=== PATIENT | male | born 1940 | race African-American/Black ===

== ENCOUNTER 2019-05-25 08:49 | Inpatient (IN) | payer MEDICARE, MEDICAID ==
[~2019-05-25] VITALS: Ht 162.6 cm; Wt 90.8 kg
[2019-05-25] MEDS: IPRATROPIUM/ALBUTEROL 0.5-3(2.5)MG/3ML NEB NEB SCH (02:25)
[~2019-05-25 08:49] MED LIST: ATOR20TA65; FLUT1DIS5; HYDR-4009; INSU3INS6; LOSA50TA41; P20; PROAIR; TEMA15CA
[2019-05-25] MEDS ORDERED: IPRATROPIUM BROMIDE (0.02%) 0.5MG/2.5ML NEB HHN STA (09:34)
[2019-05-25] MEDS ORDERED: ALBUTEROL (0.083%) 2.5MG/3ML NEB HHN STA (09:34)
[2019-05-25] MEDS ORDERED: METHYLPREDNISOLONE SOD SUCC 125 MG/2 ML VIAL IV STA (09:34)
[2019-05-25 10:01] LABS: BASOPHILS % 1.4 % (0.0-2.0); EOSINOPHILS % 5.2 % (0.0-5.0); HEMOGLOBIN. 14.1 g/dL (14.0-18.0); LYMPHOCYTES % 23.7 % (20.0-50.0); MEAN CORPUSCULAR HEMOGLOBIN 30.6 pg (28.0-32.0); MEAN CORPUSCULAR VOLUME 93.3 fL (80.0-94.0); MEAN PLATELET VOLUME 9.8 fl (7.4-10.4); MONOCYTES % 7.8 % (2.0-8.0); NEUTROPHILS % 61.9 % (40.0-76.0); PLATELET 192 x1000/uL (130-400); RED BLOOD CELL COUNT 4.61 mill/uL (4.7-6.1); RED CELL DISTRIBUTION WIDTH 14.5 % (11.6-14.6)
[2019-05-25 10:10] LABS: CHLORIDE 109 mEq/L (98-107)
[2019-05-25] MEDS: NITROGLYCERIN 0.4MG TABLET SL SL PRN ×2 (10:49→11:49)
[2019-05-25] MEDS ORDERED: MORPHINE SULFATE 4 MG/ML CPJ (NOT FOR IM USE) IV STA (11:28)
[2019-05-25] MEDS ORDERED: ONDANSETRON HCL 4MG/2ML INJ IV STA (11:28)
[2019-05-25] MEDS ORDERED: MORPHINE SULFATE 4 MG/ML CPJ (NOT FOR IM USE) IV ONE (13:00)
[2019-05-25] MEDS ORDERED: DIPHENHYDRAMINE 50MG/ML VIAL IV PRN (13:30)
[2019-05-25] MEDS ORDERED: CLONIDINE 0.1MG TABLET PO PRN (13:30)
[2019-05-25] MEDS ORDERED: GUAIFENESIN 200MG/10ML SUGAR FREE UDC PO PRN (13:30)
[2019-05-25] MEDS ORDERED: IPRATROPIUM/ALBUTEROL 0.5-3(2.5)MG/3ML NEB NEB PRN (13:30)
[2019-05-25] MEDS ORDERED: ONDANSETRON HCL 4MG/2ML INJ IV PRN (13:30)
[2019-05-25] MEDS ORDERED: ACETAMINOPHEN 650MG SUPP PR PRN (13:30)
[2019-05-25] MEDS ORDERED: LORAZEPAM 0.5MG TABLET PO PRN (13:30)
[2019-05-25] MEDS ORDERED: MAGNESIUM/ALUMINUM HYDROXIDE/SIMETHICONE 30ML UDC PO PRN (13:30)
[2019-05-25] MEDS ORDERED: NA PHOS,M-B/NA PHOS,DI-BA ENEMA 118ML PR PRN (13:30)
[2019-05-25] MEDS ORDERED: DOCUSATE SODIUM 100MG CAPSULE PO PRN (13:30)
[2019-05-25] MEDS ORDERED: ACETAMINOPHEN 325MG TABLET PO PRN (13:30)
[2019-05-25 14:31] VITALS: BP 143/78
[2019-05-25 17:23] LABS: CREATINE KINASE 182 IU/L (39-308)
[2019-05-25 17:24] LABS: CREATINE KINASE MB FRACTION 2.2 ng/mL (0.5-3.6)
[2019-05-25] MEDS: ENOXAPARIN 30MG/0.3ML SYR SUBCUT SCH (17:39)
[2019-05-25] MEDS: METHYLPREDNISOLONE SOD SUCC 40 MG/ML VIAL IV SCH (17:39)
[2019-05-25] MEDS: HYDROCODONE/ACETAMINOPHEN 5/325MG TABLET PO PRN (17:55)
[2019-05-25] MEDS: MORPHINE SULFATE 4 MG/ML CPJ (NOT FOR IM USE) IV PRN (19:04)
[2019-05-25 20:00] VITALS: BP 170/91
[2019-05-26] VITALS: BP 140/79
[2019-05-26 00:33] LABS: CREATINE KINASE 212 IU/L (39-308)
[2019-05-26 00:34] LABS: CREATINE KINASE MB FRACTION 1.9 ng/mL (0.5-3.6)
[2019-05-26] MEDS: METHYLPREDNISOLONE SOD SUCC 40 MG/ML VIAL IV SCH ×3 (01:30→18:13)
[2019-05-26 06:52] LABS: CLARITY URINE CLEAR (CLEAR); COLOR URINE YELLOW (YELLOW); KETONES URINE NEGATIVE (NEGATIVE); LEUKOCYTE ESTERASE URINE TRACE (NEGATIVE); NITRITE URINE NEGATIVE (NEGATIVE); OCCULT BLOOD URINE 1+ (NEGATIVE); PH URINE 7.5 (4.5-8.0); PROTEIN URINE 3+ (NEGATIVE); SPECIFIC GRAVITY URINE 1.024 (1.005-1.030)
[2019-05-26 07:19] LABS: *AMPHETAMINES SCREEN URINE NEGATIVE (NEGATIVE); *BARBITURATES SCREEN URINE NEGATIVE (NEGATIVE)
[2019-05-26 07:20] LABS: *BENZODIAZEPINES SCREEN URINE NEGATIVE (NEGATIVE); *COCAINE SCREEN URINE NEGATIVE (NEGATIVE); CANNABINOID URINE SCREEN NEGATIVE (NEGATIVE); METHADONE URINE SCREEN NEGATIVE (NEGATIVE); OPIATES URINE SCREEN PRESUMTIVE POSITIVE (NEGATIVE); PHENCYCLIDINE URINE SCREEN NEGATIVE (NEGATIVE)
[2019-05-26] MEDS: IPRATROPIUM/ALBUTEROL 0.5-3(2.5)MG/3ML NEB NEB SCH ×3 (07:41→21:28)
[2019-05-26 08:00] VITALS: BP 164/77
[2019-05-26 08:26] LABS: BASOPHILS % 0.2 % (0.0-2.0); HEMATOCRIT. 39.4 % (42.0-52.0); HEMOGLOBIN. 12.8 g/dL (14.0-18.0); LYMPHOCYTES % 8.9 % (20.0-50.0); MEAN CORPUSCULAR HEMOGLOBIN 30.5 pg (28.0-32.0); MEAN CORPUSCULAR VOLUME 93.6 fL (80.0-94.0); MEAN PLATELET VOLUME 9.7 fl (7.4-10.4); MONOCYTES % 1.5 % (2.0-8.0); NEUTROPHILS % 89.4 % (40.0-76.0); PLATELET 179 x1000/uL (130-400); RED BLOOD CELL COUNT 4.21 mill/uL (4.7-6.1); RED CELL DISTRIBUTION WIDTH 14.4 % (11.6-14.6)
[2019-05-26 08:29] LABS: CHLORIDE 108 mEq/L (98-107)
[2019-05-26 08:53] LABS: LDL CHOLESTEROL 144 mg/dL (5-100)
[2019-05-26 08:54] LABS: HDL CHOLESTEROL 57 mg/dL (40-59); T4 FREE 0.86 ng/dL (0.76-1.46)
[2019-05-26] MEDS: ENOXAPARIN 30MG/0.3ML SYR SUBCUT SCH ×2 (09:05→18:13)
[2019-05-26] MEDS ORDERED: DIAZEPAM 5 MG TABLET PO NR (10:45)
[2019-05-26 12:00] VITALS: BP 147/73
[2019-05-26] MEDS: HYDROCODONE/ACETAMINOPHEN 5/325MG TABLET PO PRN (13:58)
[2019-05-26 20:23] VITALS: BP 151/73
[2019-05-26] MEDS ORDERED: ATORVASTATIN CALCIUM 40MG TABLET PO SCH ×2 (21:00)
[2019-05-26] MEDS: MORPHINE SULFATE 4 MG/ML CPJ (NOT FOR IM USE) IV PRN (23:02)
[2019-05-27 00:23] VITALS: BP 118/79
[2019-05-27] MEDS: IPRATROPIUM/ALBUTEROL 0.5-3(2.5)MG/3ML NEB NEB SCH ×3 (01:53→11:35)
[2019-05-27 04:00] VITALS: BP 98/68
[2019-05-27] MEDS: METHYLPREDNISOLONE SOD SUCC 40 MG/ML VIAL IV SCH ×2 (06:20→16:57)
[2019-05-27 06:21] LABS: HEMOGLOBIN. 12.5 g/dL (14.0-18.0); MEAN CORPUSCULAR HEMOGLOBIN 30.1 pg (28.0-32.0); MEAN CORPUSCULAR VOLUME 93.7 fL (80.0-94.0); MEAN PLATELET VOLUME 10.2 fl (7.4-10.4); PLATELET 192 x1000/uL (130-400); RED BLOOD CELL COUNT 4.17 mill/uL (4.7-6.1); RED CELL DISTRIBUTION WIDTH 14.5 % (11.6-14.6)
[2019-05-27 06:26] LABS: PROTHROMBIN TIME 10.1 sec (9.6-11.0)
[2019-05-27 08:00] VITALS: BP 144/87
[2019-05-27] MEDS: ENOXAPARIN 30MG/0.3ML SYR SUBCUT SCH ×2 (10:21→16:57)
[2019-05-27 12:00] VITALS: BP 156/81
[2019-05-27 13:59] LABS: PLATELET ESTIMATE NORMAL
[2019-05-27] MEDS: MORPHINE SULFATE 4 MG/ML CPJ (NOT FOR IM USE) IV PRN (16:58)
[2019-05-27 17:53] VITALS: BP 159/77
== END 2019-05-27 19:22 | disposition home or self-care (01) | DRG 291 ==
LOC: ER 08:49 → 6WST 10:44 → EDBEDREQ 10:50 → ENRESERV 13:33
PROVIDERS: ADMIT Internal Medicine; ATTEND Internal Medicine
DX: I13.0 Hypertensive heart and chronic kidney disease with heart failure and stage 1 through stage 4 chronic kidney disease, or unspecified chronic kidney disease (principal); I50.33 Acute on chronic diastolic (congestive) heart failure; J44.1 Chronic obstructive pulmonary disease with (acute) exacerbation; J45.901 Unspecified asthma with (acute) exacerbation; N17.9 Acute kidney failure, unspecified; G62.9 Polyneuropathy, unspecified; D18.09 Hemangioma of other sites; E11.22 Type 2 diabetes mellitus with diabetic chronic kidney disease; E78.5 Hyperlipidemia, unspecified; I16.0 Hypertensive urgency; M47.896 Other spondylosis, lumbar region; M48.02 Spinal stenosis, cervical region; M48.061 Spinal stenosis, lumbar region without neurogenic claudication; N18.9 Chronic kidney disease, unspecified; G89.29 Other chronic pain; R26.81 Unsteadiness on feet; Z88.6 Allergy status to analgesic agent; Z79.1 Long term (current) use of non-steroidal anti-inflammatories (NSAID); Z79.899 Other long term (current) drug therapy; Z99.81 Dependence on supplemental oxygen
CPT/HCPCS: 36415; 71045; 72141; 72148; 76700; 78582; 80048; 80061; 80305; 81003; 82550; 82553; 83880; 84439; 84443; 84484; 93005; 93306; 93970; 94640; 96374; 97162; 99285; A9558; J1650; J2270; J2405; J2920; J2930; J7611; J7620

== ENCOUNTER 2020-11-12 13:18 | Inpatient (IN) | payer MEDICARE, MEDICAID ==
[~2020-11-12] VITALS: Ht 162.6 cm; Wt 85.7 kg
[~2020-11-12 13:18] MED LIST changes: -LOSA50TA41; -P20; -PROAIR; -TEMA15CA
[2020-11-12] MEDS ORDERED: METHYLPREDNISOLONE SOD SUCC 125 MG/2 ML VIAL IV STA (13:59)
[2020-11-12] MEDS ORDERED: AZITHROMYCIN 500 MG in DEXT 5% WATER 250 ML IV STA (13:59)
[2020-11-12] MEDS ORDERED: ALBUTEROL (0.083%) 2.5MG/3ML NEB HHN STA (13:59)
[2020-11-12 14:17] LABS: EOSINOPHILS % 1.4 % (0.0-5.0); HEMATOCRIT. 28.8 % (42.0-52.0); HEMOGLOBIN. 9.3 g/dL (14.0-18.0); MEAN CORPUSCULAR HEMOGLOBIN 32.3 pg (28.0-32.0); MEAN CORPUSCULAR VOLUME 100.2 fL (80.0-94.0); MEAN PLATELET VOLUME 9.7 fl (7.4-10.4); MONOCYTES % 11.5 % (2.0-8.0); NEUTROPHILS % 68.1 % (40.0-76.0); PLATELET 142 x1000/uL (130-400); RED BLOOD CELL COUNT 2.87 mill/uL (4.7-6.1); RED CELL DISTRIBUTION WIDTH 16.6 % (11.6-14.6)
[2020-11-12 14:33] LABS: CHLORIDE 107 mEq/L (98-107)
[2020-11-12] MEDS ORDERED: FUROSEMIDE 20MG/2ML VIAL IVP ONE (16:30)
[2020-11-12 22:30] VITALS: BP 124/70
[2020-11-13] VITALS: BP 142/78
[2020-11-13] MEDS ORDERED: IPRATROPIUM/ALBUTEROL 0.5-3(2.5)MG/3ML NEB HHN PRN (00:15)
[2020-11-13] MEDS ORDERED: LEVOFLOXACIN 500MG PREMIX 100 ML IV SCH (00:15)
[2020-11-13] MEDS ORDERED: SODIUM CHLORIDE 0.45% 1,000 ML IV SCH (00:15)
[2020-11-13] MEDS: MORPHINE SULFATE 2 MG/ML CPJ (NOT FOR IM USE) IV SCH ×2 (00:42→03:56)
[2020-11-13] MEDS: LEVOFLOXACIN 250MG PREMIX 50 ML IV SCH (01:58)
[2020-11-13] MEDS: IPRATROPIUM/ALBUTEROL 0.5-3(2.5)MG/3ML NEB HHN SCH ×3 (02:37→21:49)
[2020-11-13 04:00] VITALS: BP 151/71
[2020-11-13 06:54] LABS: HEMATOCRIT. 24.8 % (42.0-52.0); HEMOGLOBIN. 7.9 g/dL (14.0-18.0); MEAN CORPUSCULAR HEMOGLOBIN 31.9 pg (28.0-32.0); MEAN CORPUSCULAR VOLUME 100.2 fL (80.0-94.0); MEAN PLATELET VOLUME 9.5 fl (7.4-10.4); PLATELET 124 x1000/uL (130-400); RED BLOOD CELL COUNT 2.48 mill/uL (4.7-6.1); RED CELL DISTRIBUTION WIDTH 16.7 % (11.6-14.6)
[2020-11-13] MEDS ORDERED: INSULIN LISPRO 100 UNITS/ML SUBCUT SCH (07:00)
[2020-11-13] MEDS ORDERED: DEXTROSE 50% WATER 50ML SYRINGE IV PRN (07:00)
[2020-11-13] MEDS: BLOOD SUGAR DIAGNOSTIC STRIP TEST SCH ×4 (07:05→21:00)
[2020-11-13] MEDS: INSULIN LISPRO 100 UNITS/ML SUBCUT SCH ×4 (07:05→21:05)
[2020-11-13 08:00] VITALS: BP 120/65
[2020-11-13] MEDS ORDERED: ENOXAPARIN 30MG/0.3ML SYR SUBCUT SCH (09:00)
[2020-11-13] MEDS: AMLODIPINE 10MG TABLET PO SCH (10:19)
[2020-11-13] MEDS: MORPHINE SULFATE 2 MG/ML CPJ (NOT FOR IM USE) IV PRN ×2 (10:19→21:03)
[2020-11-13 12:00] VITALS: BP 111/57
[2020-11-13] MEDS ORDERED: SODIUM POLYSTYRENE SULFONATE 15 G/60 ML BOT PO SCH (12:00)
[2020-11-13] MEDS ORDERED: HYDRALAZINE 20MG/ML VIAL IV PRN (15:00)
[2020-11-13] MEDS ORDERED: HYDROCODONE/ACETAMINOPHEN 5/325MG TABLET PO PRN (15:00)
[2020-11-13] MEDS ORDERED: ALBUTEROL 6.7GM HFA INHALER ORI SCH (15:00)
[2020-11-13] MEDS: PANTOPRAZOLE SODIUM 40 MG/VIAL IV SCH (15:19)
[2020-11-13] MEDS: METHYLPREDNISOLONE SOD SUCC 40 MG/ML VIAL IV SCH ×2 (15:20→21:02)
[2020-11-13 16:00] VITALS: BP_SYST 120; BP_SYST 123; BP_DIAS 63; BP_DIAS 64
[2020-11-13] MEDS ORDERED: INSULIN GLARGINE UD 100 UNITS/ML SYR SUBCUT NR (16:30)
[2020-11-13 18:26] LABS: BG BASE EXCESS -1.6 mmol/L (-2.0-2.0); BG CARBOXYHEMOGLOBIN 0.1 % (0.5-1.5); BG DEOXYHEMOGLOBIN 12.9 % (0.0-5.0); BG FRACTION INSPIRED OXYGEN 21; BG HCO3 ACT 22.6 mmol/L (22.0-26.0); BG METHEMOGLOBIN 0.2 % (0.0-1.5); BG OXYGEN SATURATION 87.1 % (92.0-98.5); BG OXYHEMOGLOBIN 86.8 % (94.0-97.0); BG PCO2 35.5 mmHg (35.0-45.0); BG PH 7.421 (7.350-7.450); BG PO2 51.7 mmHg (75.0-100.0); BG SAMPLE SITE LEFT BRACHIAL; BG TOTAL HEMOGLOBIN 9.1 g/dL (12.0-18.0); BG VENT MODE ROOM AIR
[2020-11-13 18:34] LABS: CREATINE KINASE MB FRACTION 1.4 ng/mL (0.5-3.6)
[2020-11-13 18:38] LABS: INR 1.1; PROTHROMBIN TIME 11.9 sec (9.6-11.0)
[2020-11-13 18:50] LABS: HEPATITIS B SURFACE ANTIGEN NEGATIVE
[2020-11-13 19:20] LABS: HEPATITIS A AB IGM NEGATIVE (NEGATIVE)
[2020-11-13 20:00] VITALS: BP 130/80
[2020-11-13 20:31] LABS: NUCLEATED RED BLOOD CELLS 1 /100 WBC; PLATELET ESTIMATE NORMAL
[2020-11-13] MEDS ORDERED: LACTULOSE 20G/30ML UDC PO PRN (21:00)
[2020-11-13] MEDS: INSULIN GLARGINE UD 100 UNITS/ML SYR SUBCUT SCH (21:04)
[2020-11-14] VITALS (7 sets, daily range): BP systolic 112–146; BP diastolic 62–80
[2020-11-14] MEDS: MORPHINE SULFATE 2 MG/ML CPJ (NOT FOR IM USE) IV PRN ×3 (01:06→21:32)
[2020-11-14] MEDS: LEVOFLOXACIN 250MG PREMIX 50 ML IV SCH (01:06)
[2020-11-14] MEDS: IPRATROPIUM/ALBUTEROL 0.5-3(2.5)MG/3ML NEB HHN SCH ×4 (01:07→21:28)
[2020-11-14] MEDS: SODIUM CHLORIDE 0.45% 1,000 ML IV SCH ×2 (01:07→14:47)
[2020-11-14] MEDS: METHYLPREDNISOLONE SOD SUCC 40 MG/ML VIAL IV SCH ×3 (06:11→21:26)
[2020-11-14] MEDS: BLOOD SUGAR DIAGNOSTIC STRIP TEST SCH ×3 (06:12→18:03)
[2020-11-14] MEDS: INSULIN LISPRO 100 UNITS/ML SUBCUT SCH ×4 (06:12→21:26)
[2020-11-14 07:53] LABS: HEMOGLOBIN. 7.6 g/dL (14.0-18.0); MEAN CORPUSCULAR HEMOGLOBIN 32.2 pg (28.0-32.0); MEAN CORPUSCULAR VOLUME 101.6 fL (80.0-94.0); MEAN PLATELET VOLUME 9.7 fl (7.4-10.4); PLATELET 124 x1000/uL (130-400); RED BLOOD CELL COUNT 2.37 mill/uL (4.7-6.1); RED CELL DISTRIBUTION WIDTH 16.9 % (11.6-14.6)
[2020-11-14 08:07] LABS: T4 FREE 0.93 ng/dL (0.76-1.46)
[2020-11-14 08:53] LABS: FOLIC ACID (FOLATE) SERUM 7.7 ng/mL (>5.38)
[2020-11-14 09:03] LABS: VITAMIN B12 SERUM 1877 pg/mL (211-911)
[2020-11-14] MEDS: PANTOPRAZOLE SODIUM 40 MG/VIAL IV SCH (10:17)
[2020-11-14] MEDS: AMLODIPINE 10MG TABLET PO SCH (10:17)
[2020-11-14] MEDS: INSULIN GLARGINE UD 100 UNITS/ML SYR SUBCUT SCH (10:35)
[2020-11-14] MEDS ORDERED: INSULIN GLARGINE UD 100 UNITS/ML SYR SUBCUT NR (13:00)
[2020-11-14 19:17] LABS: PLATELET ESTIMATE SLIGHTLY DECREASED
[2020-11-14] MEDS ORDERED: INSULIN GLARGINE UD 100 UNITS/ML SYR SUBCUT SCH (22:00)
[2020-11-14] MEDS ORDERED: HALOPERIDOL LACTATE 5MG/ML VIAL IM SCH (23:30)
== END 2020-11-14 23:55 | disposition left against medical advice (07) | DRG 291 ==
LOC: ER 13:33 → 8WST 14:16 → EDBEDREQTM 14:18 → EDBEDREQ 14:18 → ENRESERV 20:55
PROVIDERS: ADMIT Internal Medicine; ATTEND Internal Medicine
DX: I13.0 Hypertensive heart and chronic kidney disease with heart failure and stage 1 through stage 4 chronic kidney disease, or unspecified chronic kidney disease (principal); I50.43 Acute on chronic combined systolic (congestive) and diastolic (congestive) heart failure; N17.9 Acute kidney failure, unspecified; J44.1 Chronic obstructive pulmonary disease with (acute) exacerbation; J45.901 Unspecified asthma with (acute) exacerbation; E46 Unspecified protein-calorie malnutrition; F11.20 Opioid dependence, uncomplicated; E87.70 Fluid overload, unspecified; D69.6 Thrombocytopenia, unspecified; E11.22 Type 2 diabetes mellitus with diabetic chronic kidney disease; E11.40 Type 2 diabetes mellitus with diabetic neuropathy, unspecified; E11.65 Type 2 diabetes mellitus with hyperglycemia; E66.9 Obesity, unspecified; E78.5 Hyperlipidemia, unspecified; E87.5 Hyperkalemia; K76.0 Fatty (change of) liver, not elsewhere classified; K40.20 Bilateral inguinal hernia, without obstruction or gangrene, not specified as recurrent; N18.30 Chronic kidney disease, stage 3 unspecified; K44.9 Diaphragmatic hernia without obstruction or gangrene; Z60.2 Problems related to living alone; G89.29 Other chronic pain; M54.9 Dorsalgia, unspecified; N49.2 Inflammatory disorders of scrotum; D53.9 Nutritional anemia, unspecified; M19.90 Unspecified osteoarthritis, unspecified site; Z53.29 Procedure and treatment not carried out because of patient's decision for other reasons; Z99.81 Dependence on supplemental oxygen; Z68.32 Body mass index [BMI] 32.0-32.9, adult; Z79.899 Other long term (current) drug therapy; Z88.8 Allergy status to other drugs, medicaments and biological substances; Z87.891 Personal history of nicotine dependence
CPT/HCPCS: 36415; 36600; 71045; 74176; 76700; 80048; 80053; 80076; 82140; 82248; 82375; 82550; 82553; 82607; 82728; 82746; 82805; 82962; 83036; 83540; 83550; 83880; 84132; 84153; 84439; 84443; 84481; 84484; 85025; 85044; 86705; 86709; 86803; 86850; 86900; 86920; 87340; 93005; 93306; 93970; 94640; 99285; A6261; C1893; C9113; J0456; J1815; J1940; J1956; J2270; J2920; J2930; J7060; G0103

== ENCOUNTER 2020-11-19 17:21 | Inpatient (IN) | payer MEDICARE, MEDICAID ==
[~2020-11-19] VITALS: Ht 162.6 cm; Wt 97.1 kg
[~2020-11-19 17:21] MED LIST changes: -ATOR20TA65; -FLUT1DIS5
[2020-11-19 18:42] LABS: HEMATOCRIT. 26.8 % (42.0-52.0); HEMOGLOBIN. 8.8 g/dL (14.0-18.0); MEAN CORPUSCULAR HEMOGLOBIN 34.2 pg (28.0-32.0); MEAN CORPUSCULAR VOLUME 103.8 fL (80.0-94.0); MEAN PLATELET VOLUME 8.8 fl (7.4-10.4); PLATELET 118 x1000/uL (130-400); RED BLOOD CELL COUNT 2.58 mill/uL (4.7-6.1); RED CELL DISTRIBUTION WIDTH 17.8 % (11.6-14.6)
[2020-11-19 18:54] LABS: CHLORIDE 106 mEq/L (98-107)
[2020-11-19] MEDS ORDERED: FUROSEMIDE 40MG/4ML VIAL IVP ONE (19:30)
[2020-11-19] MEDS ORDERED: HEPARIN 5000 UNITS/ML VIAL IV SCH (21:45)
[2020-11-19] MEDS ORDERED: HEPARIN 5000 UNITS/ML VIAL IV PRN ×2 (21:45)
[2020-11-19] MEDS ORDERED: HEPARIN 25,000 UNITS PREMIX 250 ML IV PRN (21:45)
[2020-11-19 22:21] LABS: NUCLEATED RED BLOOD CELLS 6 /100 WBC; PLATELET ESTIMATE DECREASED
[2020-11-19] MEDS ORDERED: DEXT 10% WATER 1,000 ML IV ONE (22:30)
[2020-11-19] MEDS ORDERED: IOHEXOL-350 100 ML BOTTLE ONE (23:26)
[2020-11-20 03:15] VITALS: BP 143/85
[2020-11-20] MEDS ORDERED: DEXTROSE 50% WATER 50ML SYRINGE IV PRN (04:45)
[2020-11-20] MEDS: METHYLPREDNISOLONE SOD SUCC 40 MG/ML VIAL IV SCH ×3 (06:00→21:22)
[2020-11-20] MEDS: PANTOPRAZOLE 40MG DR TABLET PO SCH (06:01)
[2020-11-20] MEDS: BLOOD SUGAR DIAGNOSTIC STRIP TEST SCH ×4 (06:01→21:21)
[2020-11-20] MEDS: INSULIN LISPRO 100 UNITS/ML SUBCUT SCH ×4 (07:50→21:24)
[2020-11-20] MEDS: IPRATROPIUM/ALBUTEROL 0.5-3(2.5)MG/3ML NEB HHN SCH ×4 (08:01→20:58)
[2020-11-20 08:13] VITALS: BP 135/70
[2020-11-20] MEDS ORDERED: ENOXAPARIN 30MG/0.3ML SYR SUBCUT SCH (09:00)
[2020-11-20] MEDS: ENOXAPARIN 100MG/ML SYR SUBCUT SCH ×2 (09:19→21:24)
[2020-11-20 10:27] LABS: HEMATOCRIT. 27.4 % (42.0-52.0); HEMOGLOBIN. 8.8 g/dL (14.0-18.0); MEAN CORPUSCULAR HEMOGLOBIN 33.3 pg (28.0-32.0); MEAN PLATELET VOLUME 8.6 fl (7.4-10.4); PLATELET 118 x1000/uL (130-400); RED BLOOD CELL COUNT 2.64 mill/uL (4.7-6.1); RED CELL DISTRIBUTION WIDTH 18.5 % (11.6-14.6)
[2020-11-20 11:06] LABS: BG BASE EXCESS 1.1 mmol/L (-2.0-2.0); BG CARBOXYHEMOGLOBIN 0.3 % (0.5-1.5); BG DEOXYHEMOGLOBIN 3.6 % (0.0-5.0); BG HCO3 ACT 25.6 mmol/L (22.0-26.0); BG METHEMOGLOBIN 0.2 % (0.0-1.5); BG OXYGEN SATURATION 96.4 % (92.0-98.5); BG OXYHEMOGLOBIN 95.9 % (94.0-97.0); BG PCO2 40.3 mmHg (35.0-45.0); BG PH 7.421 (7.350-7.450); BG PO2 89.4 mmHg (75.0-100.0); BG SAMPLE SITE RIGHT RADIAL; BG TOTAL HEMOGLOBIN 9.2 g/dL (12.0-18.0); BG VENT MODE NASAL CANNULA
[2020-11-20] MEDS: HYDROCODONE/ACETAMINOPHEN 10/325MG TABLET PO PRN ×2 (12:35→21:23)
[2020-11-20 13:31] LABS: INR 1.1; PROTHROMBIN TIME 11.6 sec (9.6-11.0)
[2020-11-20 14:10] LABS: CLARITY URINE CLEAR (CLEAR); COLOR URINE YELLOW (YELLOW); KETONES URINE NEGATIVE (NEGATIVE); LEUKOCYTE ESTERASE URINE 1+ (NEGATIVE); NITRITE URINE NEGATIVE (NEGATIVE); OCCULT BLOOD URINE NEGATIVE (NEGATIVE); PROTEIN URINE 1+ (NEGATIVE); SPECIFIC GRAVITY URINE 1.025 (1.005-1.030); UROBILINOGEN URINE 0.2 E.U./dL (0.2-1.0)
[2020-11-20] MEDS ORDERED: DIPHENHYDRAMINE 50MG/ML VIAL IV PRN (14:45)
[2020-11-20] MEDS ORDERED: LACTULOSE 20G/30ML UDC PO PRN (14:45)
[2020-11-20] MEDS ORDERED: ACETAMINOPHEN 650MG SUPP PR PRN (14:45)
[2020-11-20] MEDS ORDERED: LORAZEPAM 2MG/ML CPJ IV PRN (14:45)
[2020-11-20] MEDS ORDERED: ACETAMINOPHEN 325MG TABLET PO PRN (14:45)
[2020-11-20] MEDS: SODIUM CHLORIDE 0.45% 1,000 ML IV SCH (15:34)
[2020-11-20] MEDS ORDERED: CEFTRIAXONE 1,000 MG in DEXTROSE 5% WATER 50 ML IV SCH (16:00)
[2020-11-20 16:09] VITALS: BP 150/84
[2020-11-20 17:56] LABS: PLATELET ESTIMATE DECREASED
[2020-11-20 20:21] VITALS: BP 109/76
[2020-11-21] VITALS (9 sets, daily range): BP systolic 123–156; BP diastolic 71–88
[2020-11-21] MEDS: IPRATROPIUM/ALBUTEROL 0.5-3(2.5)MG/3ML NEB HHN SCH ×6 (00:08→20:14)
[2020-11-21] MEDS: SODIUM CHLORIDE 0.45% 1,000 ML IV SCH ×2 (04:20→15:26)
[2020-11-21] MEDS: BLOOD SUGAR DIAGNOSTIC STRIP TEST SCH ×4 (06:26→20:13)
[2020-11-21] MEDS: INSULIN LISPRO 100 UNITS/ML SUBCUT SCH ×4 (06:26→21:00)
[2020-11-21] MEDS: PANTOPRAZOLE 40MG DR TABLET PO SCH (06:29)
[2020-11-21] MEDS ORDERED: INSULIN LISPRO 100 UNITS/ML SUBCUT SCH (06:30)
[2020-11-21 07:02] LABS: HEMATOCRIT. 25.7 % (42.0-52.0); HEMOGLOBIN. 8.2 g/dL (14.0-18.0); MEAN CORPUSCULAR HEMOGLOBIN 33.3 pg (28.0-32.0); MEAN CORPUSCULAR VOLUME 104.4 fL (80.0-94.0); MEAN PLATELET VOLUME 9.1 fl (7.4-10.4); PLATELET 140 x1000/uL (130-400); RED BLOOD CELL COUNT 2.46 mill/uL (4.7-6.1); RED CELL DISTRIBUTION WIDTH 18.3 % (11.6-14.6)
[2020-11-21] MEDS: ENOXAPARIN 100MG/ML SYR SUBCUT SCH ×2 (08:54→20:55)
[2020-11-21] MEDS: HYDROCODONE/ACETAMINOPHEN 10/325MG TABLET PO PRN (08:54)
[2020-11-21] MEDS: METHYLPREDNISOLONE SOD SUCC 40 MG/ML VIAL IV SCH ×2 (08:54→16:31)
[2020-11-21] MEDS ORDERED: SODIUM POLYSTYRENE SULFONATE 15 G/60 ML BOT PO NR ×2 (11:30→17:00)
[2020-11-21] MEDS ORDERED: INSULIN GLARGINE UD 100 UNITS/ML SYR SUBCUT NR (11:30)
[2020-11-21 11:42] LABS: BG BASE EXCESS -0.8 mmol/L (-2.0-2.0); BG CARBOXYHEMOGLOBIN 0.1 % (0.5-1.5); BG DEOXYHEMOGLOBIN 22.2 % (0.0-5.0); BG FRACTION INSPIRED OXYGEN 32; BG HCO3 ACT 25.1 mmol/L (22.0-26.0); BG METHEMOGLOBIN 0.1 % (0.0-1.5); BG OXYGEN SATURATION 77.8 % (92.0-98.5); BG OXYHEMOGLOBIN 77.6 % (94.0-97.0); BG PH 7.345 (7.350-7.450); BG PO2 47.7 mmHg (75.0-100.0); BG SAMPLE SITE RIGHT RADIAL; BG TOTAL HEMOGLOBIN 9.6 g/dL (12.0-18.0); BG VENT MODE NASAL CANNULA
[2020-11-21 13:20] LABS: BG BASE EXCESS 0.8 mmol/L (-2.0-2.0); BG CARBOXYHEMOGLOBIN 0.3 % (0.5-1.5); BG DEOXYHEMOGLOBIN 0.3 % (0.0-5.0); BG FRACTION INSPIRED OXYGEN 100; BG HCO3 ACT 24.8 mmol/L (22.0-26.0); BG METHEMOGLOBIN 0.4 % (0.0-1.5); BG OXYGEN SATURATION 99.7 % (92.0-98.5); BG PCO2 37.4 mmHg (35.0-45.0); BG PO2 441.8 mmHg (75.0-100.0); BG SAMPLE SITE RIGHT RADIAL; BG TOTAL HEMOGLOBIN 9.2 g/dL (12.0-18.0); BG TOTAL RESPIRATORY RATE 23 b/min; BG VENT MODE MASK - BIPAP
[2020-11-21] MEDS: BUDESONIDE 0.5MG/2ML NEB HHN SCH (14:05)
[2020-11-21 14:26] LABS: PLATELET ESTIMATE NORMAL
[2020-11-21 15:19] LABS: T4 FREE 0.95 ng/dL (0.76-1.46)
[2020-11-21 15:20] LABS: CREATINE KINASE MB FRACTION 2.1 ng/mL (0.5-3.6)
[2020-11-21] MEDS ORDERED: SODIUM BICARBONATE 8.4% 1 MEQ/ML 50ML SYR IV NR (15:52)
[2020-11-21] MEDS ORDERED: DEXTROSE 50% WATER 50ML SYRINGE IV NR (15:54)
[2020-11-21] MEDS ORDERED: INSULIN REGULAR (HUMULIN R) 300UNITS/3ML VIAL IV NR (16:00)
[2020-11-21] MEDS ORDERED: LEVOFLOXACIN 500MG PREMIX 100 ML IV NR (16:30)
[2020-11-21] MEDS ORDERED: CALCIUM GLUCONATE 1GM PREMIX 50 ML IV NR (17:00)
[2020-11-21] MEDS: INSULIN GLARGINE UD 100 UNITS/ML SYR SUBCUT SCH (21:59)
[2020-11-22] VITALS (12 sets, daily range): BP systolic 101–161; BP diastolic 48–81
[2020-11-22] MEDS: METHYLPREDNISOLONE SOD SUCC 40 MG/ML VIAL IV SCH ×3 (00:33→16:47)
[2020-11-22] MEDS: IPRATROPIUM/ALBUTEROL 0.5-3(2.5)MG/3ML NEB HHN SCH ×6 (01:01→20:51)
[2020-11-22] MEDS: BUDESONIDE 0.5MG/2ML NEB HHN SCH ×3 (01:01→20:51)
[2020-11-22] MEDS: PANTOPRAZOLE 40MG DR TABLET PO SCH (06:18)
[2020-11-22] MEDS: BLOOD SUGAR DIAGNOSTIC STRIP TEST SCH ×4 (07:39→21:53)
[2020-11-22 07:54] LABS: HEMATOCRIT. 25.3 % (42.0-52.0); MEAN CORPUSCULAR HEMOGLOBIN 32.8 pg (28.0-32.0); MEAN CORPUSCULAR VOLUME 103.2 fL (80.0-94.0); MEAN PLATELET VOLUME 8.9 fl (7.4-10.4); PLATELET 158 x1000/uL (130-400); RED BLOOD CELL COUNT 2.45 mill/uL (4.7-6.1)
[2020-11-22] MEDS: INSULIN LISPRO 100 UNITS/ML SUBCUT SCH ×4 (08:54→21:45)
[2020-11-22] MEDS: INSULIN GLARGINE UD 100 UNITS/ML SYR SUBCUT SCH ×2 (08:54→21:57)
[2020-11-22] MEDS: ENOXAPARIN 100MG/ML SYR SUBCUT SCH ×2 (08:55→21:52)
[2020-11-22] MEDS: HYDROCODONE/ACETAMINOPHEN 10/325MG TABLET PO PRN ×2 (09:36→16:52)
[2020-11-22 13:26] LABS: PLATELET ESTIMATE NORMAL
[2020-11-22] MEDS: GABAPENTIN 100MG CAPSULE PO SCH ×2 (13:56→21:56)
[2020-11-22] MEDS: SODIUM CHLORIDE 0.45% 1,000 ML IV SCH (15:43)
[2020-11-22] MEDS: LEVOFLOXACIN 250MG TABLET PO SCH (15:46)
[2020-11-22] MEDS ORDERED: LEVOFLOXACIN 250MG PREMIX 50 ML IV SCH (16:00)
[2020-11-23] VITALS (11 sets, daily range): BP systolic 113–148; BP diastolic 43–106
[2020-11-23] MEDS: IPRATROPIUM/ALBUTEROL 0.5-3(2.5)MG/3ML NEB HHN SCH ×7 (00:06→23:50)
[2020-11-23] MEDS: METHYLPREDNISOLONE SOD SUCC 40 MG/ML VIAL IV SCH ×3 (01:44→17:48)
[2020-11-23] MEDS: GABAPENTIN 100MG CAPSULE PO SCH ×3 (06:00→21:24)
[2020-11-23 06:19] LABS: HEMATOCRIT. 24.5 % (42.0-52.0); MEAN CORPUSCULAR HEMOGLOBIN 33.5 pg (28.0-32.0); MEAN CORPUSCULAR VOLUME 102.1 fL (80.0-94.0); MEAN PLATELET VOLUME 9.1 fl (7.4-10.4); PLATELET 165 x1000/uL (130-400); RED CELL DISTRIBUTION WIDTH 17.9 % (11.6-14.6)
[2020-11-23] MEDS: BLOOD SUGAR DIAGNOSTIC STRIP TEST SCH ×4 (07:40→21:16)
[2020-11-23] MEDS: PANTOPRAZOLE 40MG DR TABLET PO SCH (08:43)
[2020-11-23] MEDS: ENOXAPARIN 100MG/ML SYR SUBCUT SCH ×2 (08:44→21:14)
[2020-11-23] MEDS: INSULIN LISPRO 100 UNITS/ML SUBCUT SCH ×4 (08:45→21:16)
[2020-11-23] MEDS: BUDESONIDE 0.5MG/2ML NEB HHN SCH (08:51)
[2020-11-23] MEDS: HYDROCODONE/ACETAMINOPHEN 10/325MG TABLET PO PRN ×2 (09:05→17:55)
[2020-11-23] MEDS: INSULIN GLARGINE UD 100 UNITS/ML SYR SUBCUT SCH ×2 (10:04→21:26)
[2020-11-23] MEDS ORDERED: POTASSIUM CHLORIDE 20MEQ TABLET SR PO NR (10:30)
[2020-11-23] MEDS: SODIUM CHLORIDE 0.45% 1,000 ML IV SCH (11:01)
[2020-11-23 14:03] LABS: NUCLEATED RED BLOOD CELLS 1 /100 WBC; PLATELET ESTIMATE NORMAL
[2020-11-23 14:20] LABS: TOTAL IRON BINDING CAPACITY 287 ug/dL (250-450)
[2020-11-23] MEDS ORDERED: INSULIN LISPRO 100 UNITS/ML SUBCUT NR (16:30)
[2020-11-23] MEDS: LEVOFLOXACIN 250MG TABLET PO SCH (17:48)
[2020-11-23] MEDS: GUAIFENESIN 600MG ER TABLET PO SCH (21:13)
[2020-11-24] MEDS: METHYLPREDNISOLONE SOD SUCC 40 MG/ML VIAL IV SCH ×3 (01:23→17:10)
[2020-11-24] MEDS: IPRATROPIUM/ALBUTEROL 0.5-3(2.5)MG/3ML NEB HHN SCH ×3 (03:47→21:03)
[2020-11-24 06:42] LABS: HEMATOCRIT 26.4 % (42.0-52.0); HEMOGLOBIN 8.5 g/dL (14.0-18.0); MEAN CORPUSCULAR HEMOGLOBIN 33.1 pg (28.0-32.0); MEAN CORPUSCULAR VOLUME 102.7 fL (80.0-94.0); PLATELET 186 x1000/uL (130-400); RED BLOOD CELL COUNT 2.57 mill/uL (4.7-6.1); RED CELL DISTRIBUTION WIDTH 17.9 % (11.6-14.6)
[2020-11-24] MEDS: GABAPENTIN 100MG CAPSULE PO SCH ×3 (06:59→22:42)
[2020-11-24] MEDS: SODIUM CHLORIDE 0.45% 1,000 ML IV SCH (07:03)
[2020-11-24] MEDS: BLOOD SUGAR DIAGNOSTIC STRIP TEST SCH ×4 (07:30→20:55)
[2020-11-24 08:00] VITALS: BP 165/87
[2020-11-24 08:02] LABS: FOLIC ACID (FOLATE) SERUM 9.1 ng/mL (>5.38)
[2020-11-24] MEDS: POTASSIUM CHLORIDE 20MEQ/PACKET PO SCH (09:29)
[2020-11-24] MEDS: GUAIFENESIN 600MG ER TABLET PO SCH ×2 (09:30→20:57)
[2020-11-24] MEDS: FAMOTIDINE 20MG TABLET PO SCH (09:30)
[2020-11-24] MEDS: HYDROCODONE/ACETAMINOPHEN 10/325MG TABLET PO PRN ×2 (09:31→15:27)
[2020-11-24] MEDS: ENOXAPARIN 100MG/ML SYR SUBCUT SCH ×2 (09:32→20:57)
[2020-11-24] MEDS: INSULIN LISPRO 100 UNITS/ML SUBCUT SCH ×4 (09:34→20:56)
[2020-11-24] MEDS: INSULIN GLARGINE UD 100 UNITS/ML SYR SUBCUT SCH ×2 (09:56→20:56)
[2020-11-24 10:00] VITALS: BP 156/88
[2020-11-24 12:00] VITALS: BP 159/81
[2020-11-24 14:00] VITALS: BP 148/88
[2020-11-24] MEDS: CLONIDINE 0.1MG TABLET PO PRN (14:04)
[2020-11-24] MEDS: ONDANSETRON HCL 4MG/2ML INJ IV PRN (15:26)
[2020-11-24 16:00] VITALS: BP 158/91
[2020-11-24] MEDS: LEVOFLOXACIN 250MG TABLET PO SCH (17:10)
[2020-11-24 20:00] VITALS: BP_SYST 134; BP_SYST 150; BP_DIAS 82; BP_DIAS 96
[2020-11-25] VITALS (8 sets, daily range): BP systolic 82–143; BP diastolic 16–79
[2020-11-25] MEDS: IPRATROPIUM/ALBUTEROL 0.5-3(2.5)MG/3ML NEB HHN SCH ×5 (00:11→20:28)
[2020-11-25] MEDS: METHYLPREDNISOLONE SOD SUCC 40 MG/ML VIAL IV SCH ×3 (00:44→17:13)
[2020-11-25] MEDS: SODIUM CHLORIDE 0.45% 1,000 ML IV SCH (04:25)
[2020-11-25] MEDS: GABAPENTIN 100MG CAPSULE PO SCH ×3 (05:20→21:12)
[2020-11-25] MEDS: CLONIDINE 0.1MG TABLET PO PRN (05:27)
[2020-11-25 06:50] LABS: HEMOGLOBIN. 8.9 g/dL (14.0-18.0); MEAN CORPUSCULAR HEMOGLOBIN 33.9 pg (28.0-32.0); MEAN CORPUSCULAR VOLUME 106.5 fL (80.0-94.0); RED BLOOD CELL COUNT 2.63 mill/uL (4.7-6.1); RED CELL DISTRIBUTION WIDTH 18.4 % (11.6-14.6)
[2020-11-25] MEDS: BLOOD SUGAR DIAGNOSTIC STRIP TEST SCH ×4 (07:48→20:52)
[2020-11-25] MEDS: INSULIN LISPRO 100 UNITS/ML SUBCUT SCH ×4 (07:49→21:25)
[2020-11-25] MEDS: GUAIFENESIN 600MG ER TABLET PO SCH ×2 (09:00→21:12)
[2020-11-25] MEDS: ONDANSETRON HCL 4MG/2ML INJ IV PRN ×3 (09:01→23:08)
[2020-11-25] MEDS: HYDROCODONE/ACETAMINOPHEN 10/325MG TABLET PO PRN ×3 (09:01→23:10)
[2020-11-25] MEDS: POTASSIUM CHLORIDE 20MEQ/PACKET PO SCH (09:02)
[2020-11-25] MEDS: ENOXAPARIN 100MG/ML SYR SUBCUT SCH ×2 (09:02→21:13)
[2020-11-25] MEDS: FAMOTIDINE 20MG TABLET PO SCH (09:05)
[2020-11-25 09:59] LABS: PLATELET 182 x1000/uL (130-400)
[2020-11-25 10:03] LABS: NUCLEATED RED BLOOD CELLS 6 /100 WBC
[2020-11-25 10:04] LABS: PLATELET ESTIMATE NORMAL
[2020-11-25] MEDS: LEVOFLOXACIN 250MG TABLET PO SCH (17:12)
[2020-11-26] VITALS (11 sets, daily range): BP systolic 118–162; BP diastolic 64–93
[2020-11-26] MEDS: IPRATROPIUM/ALBUTEROL 0.5-3(2.5)MG/3ML NEB HHN SCH ×5 (00:10→16:21)
[2020-11-26] MEDS: METHYLPREDNISOLONE SOD SUCC 40 MG/ML VIAL IV SCH ×3 (00:27→17:34)
[2020-11-26] MEDS: GABAPENTIN 100MG CAPSULE PO SCH ×2 (05:34→13:05)
[2020-11-26 06:29] LABS: HEMATOCRIT 26.2 % (42.0-52.0); HEMOGLOBIN 8.6 g/dL (14.0-18.0); MEAN CORPUSCULAR HEMOGLOBIN 34.1 pg (28.0-32.0); MEAN CORPUSCULAR VOLUME 104.4 fL (80.0-94.0); PLATELET 187 x1000/uL (130-400); RED BLOOD CELL COUNT 2.51 mill/uL (4.7-6.1); RED CELL DISTRIBUTION WIDTH 17.9 % (11.6-14.6)
[2020-11-26] MEDS: BLOOD SUGAR DIAGNOSTIC STRIP TEST SCH ×3 (07:30→17:17)
[2020-11-26] MEDS: FAMOTIDINE 20MG TABLET PO SCH (08:53)
[2020-11-26] MEDS: GUAIFENESIN 600MG ER TABLET PO SCH (08:53)
[2020-11-26] MEDS: HYDROCODONE/ACETAMINOPHEN 10/325MG TABLET PO PRN ×2 (08:53→15:44)
[2020-11-26] MEDS: POTASSIUM CHLORIDE 20MEQ/PACKET PO SCH (08:54)
[2020-11-26] MEDS: ENOXAPARIN 100MG/ML SYR SUBCUT SCH (08:54)
[2020-11-26] MEDS: SODIUM CHLORIDE 0.45% 1,000 ML IV SCH (08:55)
[2020-11-26] MEDS: INSULIN LISPRO 100 UNITS/ML SUBCUT SCH ×3 (08:55→17:38)
[2020-11-26] MEDS ORDERED: INSULIN GLARGINE UD 100 UNITS/ML SYR SUBCUT NR (13:00)
[2020-11-26] MEDS: CLONIDINE 0.1MG TABLET PO PRN (15:41)
[2020-11-26] MEDS ORDERED: INSULIN GLARGINE UD 100 UNITS/ML SYR SUBCUT SCH (22:00)
== END 2020-11-26 18:10 | DRG 175 ==
LOC: ER 17:21 → 6WST 11-20 01:06 → ENRESERV 11-20 02:24 → 5EST 11-21 12:01
PROVIDERS: ADMIT Internal Medicine; ATTEND Internal Medicine
PROC: 5A09357 Assistance with Respiratory Ventilation, Less than 24 Consecutive Hours, Continuous Positive Airway Pressure (ICD-10-PCS; principal; 2020-11-21)
DX: I26.99 Other pulmonary embolism without acute cor pulmonale (principal); I50.33 Acute on chronic diastolic (congestive) heart failure; J96.01 Acute respiratory failure with hypoxia; J44.1 Chronic obstructive pulmonary disease with (acute) exacerbation; N17.9 Acute kidney failure, unspecified; I13.0 Hypertensive heart and chronic kidney disease with heart failure and stage 1 through stage 4 chronic kidney disease, or unspecified chronic kidney disease; N39.0 Urinary tract infection, site not specified; F11.20 Opioid dependence, uncomplicated; D64.9 Anemia, unspecified; E11.649 Type 2 diabetes mellitus with hypoglycemia without coma; E11.65 Type 2 diabetes mellitus with hyperglycemia; E87.5 Hyperkalemia; N18.30 Chronic kidney disease, stage 3 unspecified; E66.01 Morbid (severe) obesity due to excess calories; E78.5 Hyperlipidemia, unspecified; D69.6 Thrombocytopenia, unspecified; M48.061 Spinal stenosis, lumbar region without neurogenic claudication; Z20.822 Contact with and (suspected) exposure to COVID-19; E11.22 Type 2 diabetes mellitus with diabetic chronic kidney disease; E11.42 Type 2 diabetes mellitus with diabetic polyneuropathy; R14.0 Abdominal distension (gaseous); T38.0X5A Adverse effect of glucocorticoids and synthetic analogues, initial encounter; Y92.89 Other specified places as the place of occurrence of the external cause; Z68.36 Body mass index [BMI] 36.0-36.9, adult; Z91.19 Patient's noncompliance with other medical treatment and regimen; Z99.81 Dependence on supplemental oxygen; Z79.1 Long term (current) use of non-steroidal anti-inflammatories (NSAID); Z79.899 Other long term (current) drug therapy; Z88.6 Allergy status to analgesic agent
CPT/HCPCS: 36415; 36600; 71045; 71275; 72148; 76705; 80048; 80053; 81003; 82375; 82550; 82553; 82570; 82607; 82728; 82746; 82805; 82962; 83036; 83540; 83550; 83880; 83935; 84132; 84300; 84439; 84443; 84481; 84484; 85025; 85027; 87426; 93005; 93970; 94640; 94660; 97162; 99285; C1893; J0610; J0696; J1644; J1650; J1815; J1940; J1956; J2060; J2405; J2920; J3490; J7060; J7626; Q9967